=== PATIENT | female | born 1990 | race Caucasian/White ===

== ENCOUNTER 2024-05-10 00:09 | Emergency (ER) | payer BC ==
[~2024-05-10] VITALS: Ht 170.2 cm; Wt 70.5 kg
[2024-05-10] MEDS: ketorolac tromethamine 15mg/ml inj. IV ONE (00:39)
[2024-05-10] MEDS: metoclopramide 5 mg/ml inj IV ONE (00:40)
[2024-05-10] MEDS: normal saline 1000ml 1,000 ML IV ONE (00:40)
[2024-05-10] MEDS: diphenhydrAMINE 50 mg/ml inj IV ONE (00:40)
[2024-05-10] MEDS: acetaminophen 1,000mg/100ml IV 100 ML IV SCH (00:55)
[2024-05-10 01:39] VITALS: BP 120/67; PULSE 68; RESP 18; TEMP 97.8; O2SAT 98
== END 2024-05-10 01:35 | disposition home or self-care (01) ==
LOC: ER 00:10
DX: G43.809 Other migraine, not intractable, without status migrainosus (principal)
CPT/HCPCS: 96361; 96374; 96375; 99284; J1200; J1885; J2765; J7030